=== PATIENT | male | born 1970 | race Caucasian/White ===

== ENCOUNTER 2017-01-08 14:21 | Emergency (ER) | payer MEDICAID, OTHER ==
[~2017-01-08] VITALS: Ht 175.3 cm; Wt 100.0 kg
[~2017-01-08 14:21] MED LIST: ALBU8I INH; PRIL20CA PO; SERO100T PO; SILD20TA PO; ZOLO50TA PO
[2017-01-08 14:22] VITALS: BP 147/97; PULSE 85; RESP 15; TEMP 98.3; O2SAT 98
[2017-01-08] MEDS ORDERED: KETOROLAC TROMETHAMINE 60 MG/2 ML (IM) VIAL IM ONE (14:45)
[2017-01-08] MEDS ORDERED: DEXAMETHASONE SOD PHOS 20 MG/5 ML VIAL IM ONE (14:45)
[2017-01-08] MEDS ORDERED: TYLE325T PO (14:48)
[2017-01-08] MEDS ORDERED: PRED50 PO (14:59)
[2017-01-08] MEDS ORDERED: MELO-1 PO (14:59)
--- NOTE | 2017-01-08 15:00 | PD ---
HPI Chief Complaint: Edema Time Seen by Provider: 14:35 Travel History International Travel<30 days: No Contact w/Intl Traveler<30days: No Traveled to known affect area: No History of Present Illness HPI Patient is a 46-year-old male presenting to the chart for evaluation of bilateral knee pain. Patient states started over a month ago, he was seen and evaluated by his primary doctor at the [place] [facility] last week and prescribed tramadol which he states he had an allergic reaction to. Patient states that the pain in his knees makes it difficult to walk. He denies any injury or trauma. He denies any redness. Patient feels that his knees are swollen. Patient reports his pain as a 10 out of 10. He states that this exacerbates and then relieves itself. He has been taking Tylenol with no significant relief of symptoms. He denies being on any medications currently. PFSH Past Medical History Asthma: Yes (as child) Cardiovascular Problems: Yes Diminished Hearing: No GERD: Yes Headaches: Yes Hypertension: Yes Psychiatric: Yes (PTSD) Respiratory: Yes Sleep Apnea: Yes ?: Not Past Surgical History Abdominal Surgery: Yes (dbl hernia as child) Other Surgery: Yes (cyst removal from back) Social History Alcohol Use: Yes Tobacco Use: No (quit) Substance Use: Yes (ALCOHOL) Allergies-Medications (Allergen,Severity, Reaction): Coded Allergies: tramadol (Verified Allergy, Severe, Rash, 01/08/17) Reported Meds & Prescriptions Reported Meds & Active Scripts Active Reported Tylenol (Acetaminophen) 325 Mg Tab 325 Mg PO Q4H PRN Review of Systems Except as stated in HPI: all other systems reviewed are Neg Musculoskeletal: Positive: Myalgias, Arthralgias Physical Exam Narrative GENERAL: Well-developed, well-nourished, alert male. Sitting comfortably in a wheelchair in no acute distress. SKIN: Warm and dry. HEAD: Normocephalic. EYES: No scleral icterus. No injection or drainage. NECK: Supple, trachea midline. No JVD or lymphadenopathy. CARDIOVASCULAR: Regular rate and rhythm without murmurs, gallops, or rubs. RESPIRATORY: Breath sounds equal bilaterally. No accessory muscle use. GASTROINTESTINAL: Abdomen soft, non-tender, nondistended. MUSCULOSKELETAL: No cyanosis, or edema. No obvious deformities. No erythema noted. No edema noted to bilateral lower extremities. No edema noted to the bilateral knees. Tender to palpation. Negative Homans sign bilaterally. BACK: Nontender without obvious deformity. No CVA tenderness. Data Data Last Documented VS Vital Signs Date Time Temp Pulse Resp B/P (MAP) Pulse Ox O2 Delivery O2 Flow Rate FiO2 01/08/17 14:22 98.3 85 15 147/97 (114) 98 Orders Orders Dexamethasone Inj (Decadron Inj) (01/08/17 14:45) Ketorolac Inj (Toradol Inj) (01/08/17 14:45) MDM Medical Decision Making Medical Screen Exam Complete: Yes Emergency Medical Condition: Yes Interpretation(s) Vital Signs Date Time Temp Pulse Resp B/P (MAP) Pulse Ox O2 Delivery O2 Flow Rate FiO2 01/08/17 14:22 98.3 85 15 147/97 (114) 98 Differential Diagnosis Arthritis versus sprain versus strain versus malingering versus other Narrative Course Patient is a 46-year-old male presenting for evaluation of bilateral knee pain that has been ongoing for over a month. He has been seen and evaluated by his primary doctor who prescribed medication for pain which he states he is allergic to. Patient is neurovascularly intact, there is no obvious deformity noted. No obvious signs of cellulitis or infection. Patient is afebrile and his vital signs are stable. Last dose of acetaminophen was this morning. Patient was given Toradol and dexamethasone the emergency department. He will be provided with a prescription for anti-inflammatory medication and short course of oral steroids. He is encouraged to follow-up with the [place] [facility] early next week. He was encouraged to return to emergency department for any new or worsening symptoms. Patient is stable for discharge. Diagnosis Primary Impression: Bilateral knee pain Qualified Codes: M25.561 - Pain in right knee; M25.562 - Pain in left knee Referrals: Primary Care Physician 3 days Patient Instructions: Arthralgia (ED), Arthritis (ED), General Instructions, Knee Pain (GEN) Additional Instructions: Take medications as directed Apply warm moist heat to the affected areas, continue range of motion exercises , avoid exacerbating activity, avoid bed rest Return to emergency department for any new or worsening symptoms otherwise follow up with your primary doctor next week for further evaluation and management. Meloxicam is once a day dosing, this is an anti-inflammatory medication similar to ibuprofen or naproxen. Med/Other Pt SpecificInfo: Prescription(s) given Scripts Prednisone (Prednisone) 50 Mg Tab 50 MG PO DAILY for 3 Days, TAB 0 Refills Prov: Vera Barrera 01/08/17 Meloxicam (Meloxicam) 15 Mg Tab 15 MG PO DAILY for Arthritis Pain, #10 TAB 0 Refills Prov: Vera Barrera 01/08/17 Disposition: 01 DISCHARGE HOME Condition: Stable eVra Barrera Jan 08, 2017 15:00
== END 2017-01-08 15:19 | disposition home or self-care (01) ==
LOC: NEPK 14:21
DX: M25.561 Pain in right knee (principal); M25.562 Pain in left knee
CPT/HCPCS: 96372; 99284; J1100; J1885

== ENCOUNTER 2017-02-21 09:35 | Emergency (ER) | payer OTHER, MEDICAID ==
[~2017-02-21] VITALS: Ht 175.3 cm; Wt 90.0 kg
[~2017-02-21 09:35] MED LIST changes: -ALBU8I INH; +MELO-1 PO; +PRED50 PO; -PRIL20CA PO; -SERO100T PO; -SILD20TA PO; +TYLE325T PO; -ZOLO50TA PO
[2017-02-21 09:36] VITALS: BP 177/96; PULSE 85; RESP 20; TEMP 98.1; O2SAT 98
[2017-02-21] MEDS ORDERED: LIDOCAINE HCL 1% 30 ML VIAL INFIL ONE (09:45)
[2017-02-21] MEDS ORDERED: LIDOCAINE HCL 1% 50 ML VIAL ONE (09:55)
--- NOTE | 2017-02-21 10:49 | PD ---
HPI . Bilateral knee pain Chief Complaint: Musculoskeletal Complaint Time Seen by Provider: 09:52 Travel History International Travel<30 days: No Contact w/Intl Traveler<30days: No Traveled to known affect area: No History of Present Illness HPI This patient presents with a chief complaint of bilateral knee pain. Onset was approximately 3 weeks ago. He states that he was treated for gonorrhea about a month ago. He finished the treatment and started experiencing right knee pain shortly thereafter. The pain has moved to the left knee as well. Symptoms are getting progressively worse. He is now to the point where he cannot walk without the assistance of crutches. Pain is exacerbated by walking. He states that he has been seen at the [place] [facility] a couple of times for the knee pain.. He states that he had x-rays taken which were "cloudy." He states that he has a referral to the clinic in [place] for early March. He states that he just could not take the pain anymore so presented to us today. He states that he was told by the [facility] that he needed to have his knees aspirated and cultured and then treated accordingly. PFSH Past Medical History Asthma: Yes (as child) Cardiovascular Problems: Yes (HTN) Diminished Hearing: No GERD: Yes Headaches: Yes Hypertension: Yes Psychiatric: Yes (PTSD) Respiratory: Yes Sleep Apnea: Yes Influenza Vaccination: No Past Surgical History Abdominal Surgery: Yes (dbl hernia as child) Other Surgery: Yes (cyst removal from back) Social History Alcohol Use: Yes Tobacco Use: No (quit) Substance Use: Yes (ALCOHOL) Allergies-Medications (Allergen,Severity, Reaction): Coded Allergies: tramadol (Verified Allergy, Severe, Rash, 02/21/17) Reported Meds & Prescriptions Reported Meds & Active Scripts Active No Active Prescriptions or Reported Medications Review of Systems Except as stated in HPI: all other systems reviewed are Neg General / Constitutional: No: Fever, Chills Musculoskeletal: Positive: Arthralgias, Limited ROM Physical Exam Narrative GENERAL: Awake and alert and in no acute distress. SKIN: Warm and dry. The overlying skin of the knees is not red or hot. HEAD: Normocephalic/atraumatic. EYES: Pupils are equal. Extraocular movements are intact. NECK: Supple. Full range of motion. CARDIOVASCULAR: Regular rate. RESPIRATORY: Nonlabored respirations. MUSCULOSKELETAL: Knees have full range of motion. They are both diffusely tender. NEUROLOGICAL: Nonfocal. PSYCHIATRIC: Appropriate mood and affect. Data Data Last Documented VS Vital Signs Date Time Temp Pulse Resp B/P (MAP) Pulse Ox O2 Delivery O2 Flow Rate FiO2 02/21/17 11:15 76 99 02/21/17 09:36 98.1 20 Room Air Orders Orders Lidocaine 1% Inj (Xylocaine 1% Inj) (02/21/17 09:45) Fluid Culture And Gram Stain (02/21/17 09:45) Synovial Fl Cell Count + Diff (02/21/17 09:45) Synovial Fluid Crystals (02/21/17 09:45) Synovial Fluid Glucose (02/21/17 09:45) Synovial Fluid Total Protein (02/21/17 09:45) Lidocaine 1% Inj (50 Ml) (Xylocaine 1% I (02/21/17 09:55) Synovial Fl Cell Count + Diff (02/21/17 10:38) Synovial Fluid Crystals (02/21/17 10:38) Synovial Fluid Total Protein (02/21/17 10:38) Synovial Fluid Glucose (02/21/17 10:38) Fluid Culture And Gram Stain (02/21/17 10:38) Labs Laboratory Tests Test 02/21/17 10:35 02/21/17 10:38 Synovial Fluid Color RED YELLOW Synovial Fluid Appearance MODERATE SLIGHT Synovial Fluid WBC 300 /MM3 1278 /MM3 Synovial Fluid RBC 689962 /MM3 720 /MM3 Synovial Fluid Neutrophils 82 % 56 % Synovial Fluid Lymphocytes 11 % 19 % Synovial Fluid Monocytes 4 % 19 % Synovial Fluid Eosinophils 1 % Synovial Fluid Histiocytes 2 % 6 % Synovial Fluid Other Cells % Synovial Fluid Crystals NONE NONE MDM Medical Decision Making Medical Screen Exam Complete: Yes Emergency Medical Condition: Yes Differential Diagnosis Differential diagnosis of joint pain includes but is not limited to arthritis, gout, sprain/strain, fracture, dislocation, bursitis Narrative Course This patient presents with bilateral knee pain which started after treatment for GC. Both knees have been aspirated and fluid has been sent for culture, cell count, protein/glucose evaluation. Synovial fluid analysis, right knee: RBCs 100,000 WBCs 300 PMNs 82 Synovial fluid analysis, left knee: RBCs 720 WBCs 1278 PMNs 56 UpToDate was queried to assist with evaluation of the analyses. Both knees have noninflammatory fluid. The patient will be discharged home on Relafen. He is to keep his appointment at the [facility] in [place]. Procedures Procedure Narrative JOINT ASPIRATION: Following consent, identification of the correct patient and identification of the correct site Skin prepped with Betadine. Skin anesthetize with lidocaine. Joint aspirated using an 18-gauge needle and syringe. Approximately 6 cc of grossly bloody fluid was aspirated from the right knee. It has been sent for culture, cell count, protein/glucose evaluation. 10 cc of clear yellow fluid was aspirated from the left knee. It has also been sent to the lab for culture, cell count, protein/glucose evaluation. Diagnosis Primary Impression: Effusion, right knee Additional Impression: Effusion, left knee Patient Instructions: General Instructions, Knee Pain (ED) Med/Other Pt SpecificInfo: Prescription(s) given Scripts Nabumetone (Nabumetone) 750 Mg Tab 750 MG PO BID for Pain-Inflammation, #60 TAB 0 Refills Prov: Freda Gagnon MD 02/21/17 Disposition: 01 DISCHARGE HOME Condition: Stable Freda Gagnon MD Feb 21, 2017 10:49
--- NOTE | 2017-02-21 10:49 | PD ---
HPI . Bilateral knee pain Chief Complaint: Musculoskeletal Complaint Time Seen by Provider: 09:52 Travel History International Travel<30 days: No Contact w/Intl Traveler<30days: No Traveled to known affect area: No History of Present Illness HPI This patient presents with a chief complaint of bilateral knee pain. Onset was approximately 3 weeks ago. He states that he was treated for gonorrhea about a month ago. He finished the treatment and started experiencing right knee pain shortly thereafter. The pain has moved to the left knee as well. Symptoms are getting progressively worse. He is now to the point where he cannot walk without the assistance of crutches. Pain is exacerbated by walking. He states that he has been seen at the [place] [facility] a couple of times for the knee pain.. He states that he had x-rays taken which were "cloudy." He states that he has a referral to the clinic in [place] for early March. He states that he just could not take the pain anymore so presented to us today. He states that he was told by the [place] [facility] that he needed to have his knees aspirated and cultured and then treated accordingly. PFSH Past Medical History Asthma: Yes (as child) Cardiovascular Problems: Yes (HTN) Diminished Hearing: No GERD: Yes Headaches: Yes Hypertension: Yes Psychiatric: Yes (PTSD) Respiratory: Yes Sleep Apnea: Yes Influenza Vaccination: No Past Surgical History Abdominal Surgery: Yes (dbl hernia as child) Other Surgery: Yes (cyst removal from back) Social History Alcohol Use: Yes Tobacco Use: No (quit) Substance Use: Yes (ALCOHOL) Allergies-Medications (Allergen,Severity, Reaction): Coded Allergies: tramadol (Verified Allergy, Severe, Rash, 02/21/17) Reported Meds & Prescriptions Reported Meds & Active Scripts Active No Active Prescriptions or Reported Medications Review of Systems Except as stated in HPI: all other systems reviewed are Neg General / Constitutional: No: Fever, Chills Musculoskeletal: Positive: Arthralgias, Limited ROM Physical Exam Narrative GENERAL: Awake and alert and in no acute distress. SKIN: Warm and dry. The overlying skin of the knees is not red or hot. HEAD: Normocephalic/atraumatic. EYES: Pupils are equal. Extraocular movements are intact. NECK: Supple. Full range of motion. CARDIOVASCULAR: Regular rate. RESPIRATORY: Nonlabored respirations. MUSCULOSKELETAL: Knees have full range of motion. They are both diffusely tender. NEUROLOGICAL: Nonfocal. PSYCHIATRIC: Appropriate mood and affect. Data Data Last Documented VS Vital Signs Date Time Temp Pulse Resp B/P (MAP) Pulse Ox O2 Delivery O2 Flow Rate FiO2 02/21/17 11:15 76 99 02/21/17 09:36 98.1 20 Room Air Orders Orders Lidocaine 1% Inj (Xylocaine 1% Inj) (02/21/17 09:45) Fluid Culture And Gram Stain (02/21/17 09:45) Synovial Fl Cell Count + Diff (02/21/17 09:45) Synovial Fluid Crystals (02/21/17 09:45) Synovial Fluid Glucose (02/21/17 09:45) Synovial Fluid Total Protein (02/21/17 09:45) Lidocaine 1% Inj (50 Ml) (Xylocaine 1% I (02/21/17 09:55) Synovial Fl Cell Count + Diff (02/21/17 10:38) Synovial Fluid Crystals (02/21/17 10:38) Synovial Fluid Total Protein (02/21/17 10:38) Synovial Fluid Glucose (02/21/17 10:38) Fluid Culture And Gram Stain (02/21/17 10:38) Labs Laboratory Tests Test 02/21/17 10:35 02/21/17 10:38 Synovial Fluid Color RED YELLOW Synovial Fluid Appearance MODERATE SLIGHT Synovial Fluid WBC 300 /MM3 1278 /MM3 Synovial Fluid RBC 732295 /MM3 720 /MM3 Synovial Fluid Neutrophils 82 % 56 % Synovial Fluid Lymphocytes 11 % 19 % Synovial Fluid Monocytes 4 % 19 % Synovial Fluid Eosinophils 1 % Synovial Fluid Histiocytes 2 % 6 % Synovial Fluid Other Cells % Synovial Fluid Crystals NONE NONE MDM Medical Decision Making Medical Screen Exam Complete: Yes Emergency Medical Condition: Yes Differential Diagnosis Differential diagnosis of joint pain includes but is not limited to arthritis, gout, sprain/strain, fracture, dislocation, bursitis Narrative Course This patient presents with bilateral knee pain which started after treatment for GC. Both knees have been aspirated and fluid has been sent for culture, cell count, protein/glucose evaluation. Synovial fluid analysis, right knee: RBCs 100,000 WBCs 300 PMNs 82 Synovial fluid analysis, left knee: RBCs 720 WBCs 1278 PMNs 56 UpToDate was queried to assist with evaluation of the analyses. Both knees have noninflammatory fluid. The patient will be discharged home on Relafen. He is to keep his appointment at the [facility] in [place]. Procedures Procedure Narrative JOINT ASPIRATION: Following consent, identification of the correct patient and identification of the correct site Skin prepped with Betadine. Skin anesthetize with lidocaine. Joint aspirated using an 18-gauge needle and syringe. Approximately 6 cc of grossly bloody fluid was aspirated from the right knee. It has been sent for culture, cell count, protein/glucose evaluation. 10 cc of clear yellow fluid was aspirated from the left knee. It has also been sent to the lab for culture, cell count, protein/glucose evaluation. Diagnosis Primary Impression: Effusion, right knee Additional Impression: Effusion, left knee Patient Instructions: General Instructions, Knee Pain (ED) Med/Other Pt SpecificInfo: Prescription(s) given Scripts Nabumetone (Nabumetone) 750 Mg Tab 750 MG PO BID for Pain-Inflammation, #60 TAB 0 Refills Prov: Freda Gagnon MD 02/21/17 Disposition: 01 DISCHARGE HOME Condition: Stable Freda Gagnon MD Feb 21, 2017 10:49
[2017-02-21 11:15] VITALS: PULSE 76; O2SAT 99
[2017-02-21 12:59] LABS: WBC, SYNOVIAL FLUID 300 /MM3 (0-200)
[2017-02-21 13:00] LABS: WBC, SYNOVIAL FLUID 1278 /MM3 (0-200)
[2017-02-21] MEDS ORDERED: NABU1TAB33 PO (13:43)
[2017-02-21 13:58] VITALS: BP 178/87
== END 2017-02-21 13:59 | disposition home or self-care (01) ==
LOC: NEPD 09:35
DX: M25.461 Effusion, right knee (principal); M25.462 Effusion, left knee; I10 Essential (primary) hypertension; G47.30 Sleep apnea, unspecified; Z87.09 Personal history of other diseases of the respiratory system; Z86.79 Personal history of other diseases of the circulatory system; Z87.19 Personal history of other diseases of the digestive system; Z86.59 Personal history of other mental and behavioral disorders
CPT/HCPCS: 20610; 82945; 84157; 87070; 87205; 89051; 89060